=== PATIENT | female | born 1935 | race Caucasian/White ===

== ENCOUNTER 2023-07-05 12:59 | Emergency (ER) | payer MEDICARE ==
[2023-07-05] MEDS ORDERED: fentaNYL 100 MCG/2 ML VIAL IVP STA (13:53)
[2023-07-05] MEDS ORDERED: ONDANSETRON 4 MG/2 ML VIAL IVP STA (13:53)
[2023-07-05] MEDS ORDERED: ACETAMINOPHEN 325 MG TABLET PO STA (14:01)
[2023-07-05] MEDS ORDERED: LIDOCAINE PATCH 4% TOP STA (14:01)
[2023-07-05 14:05] LABS: BASOPHILS % (AUTO) 0.7 %; EOSINOPHILS # (AUTO) 0.1 10^3/uL (0.0-0.7); EOSINOPHILS % (AUTO) 1.6 %; LYMPHOCYTES # (AUTO) 0.8 10^3/uL (1.5-3.5); LYMPHOCYTES % (AUTO) 13.7 %; MEAN CORPUSCULAR HEMOGLOBIN 31.3 pg (27.0-31.0); MEAN CORPUSCULAR HGB CONC 32.5 g/dL (32.0-36.0); MEAN CORPUSCULAR VOLUME 96.2 fL (81.0-99.0); MEAN PLATELET VOLUME 9.2 fL (7.9-10.8); MONOCYTES # (AUTO) 0.5 10^3/uL (0.0-1.0); MONOCYTES % (AUTO) 8.5 %; NEUTROPHILS # (AUTO) 4.2 10^3/uL (1.5-6.6); NEUTROPHILS % (AUTO) 75.3 %; PLT - PLATELET COUNT 226 10^3/uL (130-450); RED BLOOD COUNT 4.16 10^6/uL (4.20-5.40); RED CELL DISTRIBUTION WIDTH 12.5 % (12.0-15.0); WHITE BLOOD COUNT 5.5 x10^3/uL (4.8-10.8)
[2023-07-05 14:18] LABS: ALBUMIN/GLOBULIN RATIO 1.7 (1.0-2.2); BILIRUBIN,TOTAL 0.5 mg/dL (0.2-1.0); CALCIUM 8.9 mg/dL (8.5-10.3); CREATININE 0.6 mg/dL (0.6-1.3); POTASSIUM 3.9 mmol/L (3.5-4.5); TOTAL PROTEIN 6.4 g/dL (6.4-8.9)
[2023-07-05 14:25] LABS: TROPONIN I HIGH SENSITIVITY 3.1 ng/L (2.3-14.8)
--- NOTE | 2023-07-05 15:44 | XRAY Report ---
PROCEDURE: Chest 1V INDICATIONS: chest pain TECHNIQUE: One view of the chest was acquired. COMPARISON: None. FINDINGS: Surgical changes and devices: Cardiac event recorder. Lungs and pleura: No pleural effusions or pneumothorax. Lungs are clear. Mediastinum: Mediastinal contours appear normal. Heart size is normal. Bones and chest wall: No suspicious bony lesions. Overlying soft tissues appear unremarkable. IMPRESSION: No acute cardiopulmonary disease process. Reviewed by: Armida Mederos MD, PhD on 07/05/2023 3:42 PM PST Approved by: Armida Mederos MD, PhD on 07/05/2023 3:42 PM PST Station ID: [id number]
--- NOTE | 2023-07-05 16:04 | ED Physician Documentation ---
History of Present Illness - Stated complaint Stated Complaint: SHARP BACK PX - Chief complaint Chief Complaint: Back Pain - Additonal information Additional information: Patient 88-year-old female presenting to the emergency department with chest and back pain. Comes to the emergency department accompanied by daughter and reports that she began experiencing Pain to the left side of her chest radiating to her left arm and up to her left neck. Began approximately 1 day ago. She is visiting from [place]. She does report that she has had some increased physical activity. Denies any episodes of similar pain. Pain is exacerbated by activity. Improved with acetaminophen. Denies shortness of breath, hemoptysis,Previous cardiac history. Does not take any prescription medications. Review of Systems Constitutional: denies: Fever Eyes: denies: Loss of vision Ears: denies: Loss of hearing Nose: denies: Rhinorrhea / runny nose Throat: denies: Dental pain / toothache Cardiac: reports: Chest pain / pressure Respiratory: denies: Dyspnea GI: denies: Abdominal Pain : denies: Dysuria Skin: denies: Rash Musculoskeletal: reports: Neck pain, Back pain PD PAST MEDICAL HISTORY - Past Medical History Past Medical History: Yes - Past Surgical History Past Surgical History: Yes - Present Medications Home Medications: Ambulatory Orders Medication Instructions Recorded Confirmed Acetaminophen [Tylenol] 650 mg ME Q6HR #20 tab 07/05/23 Lidocaine Patch 5% [Lidoderm Patch] 1 patch TOP DAILY PRN #10 patch 07/05/23 - Allergies Allergies/Adverse Reactions: Allergies Allergy/AdvReac Type Severity Reaction Status Date / Time ibuprofen Allergy Rash Verified 07/05/23 13:05 Sulfa (Sulfonamide Allergy Rash Verified 07/05/23 13:05 Antibiotics) - Social History Does the pt smoke?: No Smoking Status: Never smoker Does the pt drink ETOH?: No Does the pt have substance abuse?: No - Immunizations Immunizations are current?: Yes PD ED PE NORMAL - Vitals Vital signs reviewed: Yes - General General: Alert and oriented X 3, No acute distress, Well developed/nourished - HEENT HEENT: Atraumatic, PERRL, EOMI, Ears normal, Moist mucous membranes, Pharynx benign - Neck Neck: Supple, no meningeal sign, No bony TTP, No adenopathy, Thyroid normal, No JVD - Cardiac Cardiac: RRR, Other - Respiratory Respiratory: No respiratory distress - Abdomen Abdomen: Normal bowel sounds - Female Female : Deferred - Rectal Rectal: Deferred - Back Back: Other (Tenderness to palpation to the mid left-sided thoracic paraspinal muscles) Results - Vitals Vitals: Vital Signs - 24 hr 07/05/23 13:05 Temperature 36.5 C Heart Rate 78 Respiratory 16 Rate Blood Pressure 150/76 H O2 Saturation 100 Oxygen O2 Source Room air - EKG (time done) 1404 EKG releavant findings:: EKG personally interpreted by author of this note. Relevant findings are: Sinus rhythm with rate 60 bpm. Normal axis. Normal ME, QRS, QTc intervals. No ST segment elevations or T wave inversions. - Labs Labs: Laboratory Tests 07/05/23 07/05/23 13:59 13:59 WBC 5.5 RBC 4.16 L Hgb 13.0 Hct 40.0 MCV 96.2 MCH 31.3 H MCHC 32.5 RDW 12.5 Plt Count 226 MPV 9.2 Neut # (Auto) 4.2 Lymph # (Auto) 0.8 L Faulkner # (Auto) 0.5 Eos # (Auto) 0.1 Baso # (Auto) 0.0 Absolute Nucleated RBC 0.00 Nucleated RBC % 0.0 Sodium 139 Potassium 3.9 Chloride 106 Carbon Dioxide 26 Anion Gap 7.0 BUN 31 H Creatinine 0.6 Estimated GFR (MDRD) 94 Glucose 111 H Calcium 8.9 Total Bilirubin 0.5 AST 17 ALT 16 Alkaline Phosphatase 59 Troponin I High Sens 3.1 Total Protein 6.4 Albumin 4.0 Globulin 2.4 Albumin/Globulin Ratio 1.7 Lipase 39 PD Medical Decision Making - ED course Complexity details: reviewed results, considered differential, d/w patient, d/w family ED course: Patient 88-year-old female presenting to the emergency department with left- sided chest wall pain involving the left arm and left side of neck. No history of trauma. Pain reproducible upon palpation here in the emergency department. Patient's EKG is reassuring and that there is no indications of acute cardiac ischemia. Her x-ray per my interpretation is similarly benign. I did obtain lab work including a high-sensitivity troponin which was negative. PE is considered in her differential however she does not have any symptoms that would be typical for PE like pleuritic chest pain, hemoptysis, shortness of breath and the way that her pain is easily reproduced is reassuring that this is musculoskeletal in nature. Initially she was offered medication for pain control including 25 mcg of fentanyl which she declined. She was given Tylenol and a Lidoderm patch. Her care was discussed with both herself and her daughter who are present at bedside. All findings discussed. Will discharge with Tylenol and Lidoderm patches for use at home. Will encourage careful follow-up with primary care or immediate return to the emergency department. Departure - Departure Disposition: , Self Care Clinical Impression: Chest pain Qualifiers: Chest pain type: unspecified Qualified Code(s): R07.9 - Chest pain, unspecified Back pain Qualifiers: Back pain location: thoracic back pain Chronicity: acute Back pain laterality: left Qualified Code(s): M54.6 - Pain in thoracic spine Prescriptions: Acetaminophen [Tylenol] 650 mg ME Q6HR #20 tab Lidocaine Patch 5% [Lidoderm Patch] 1 patch TOP DAILY PRN #10 patch PRN Reason: pain Comments: Thank you for allowing us to care for you today at [facility]. Testing performed today including your EKG, blood work and chest x-ray were all very reassuring. I have written some prescriptions for Lidoderm patches and Tylenol which you can take at home. Please stay well-hydrated. I recommend gentle activity as tolerated as complete and activity can make pain such as which you are experiencing worse. Other things that could be helpful include hot packs are soaking in hot Bad this. Your symptoms should be slowly but steadily improving over the course the next several days. If it anytime they worsen It is important that you return to the emergency department for reevaluation. Elsewise please follow-up with your primary care doctor.
[2023-07-05 16:20] VITALS: BP 149/86; O2SAT 98
== END 2023-07-05 16:18 | disposition home or self-care (01) ==
LOC: ED 12:59
DX: R07.9 Chest pain, unspecified (principal); M54.6 Pain in thoracic spine
CPT/HCPCS: 36415; 71045; 80053; 83690; 84484; 85025; 93005; 99284; A9270